=== PATIENT | female | born 1985 | race Caucasian/White ===

== ENCOUNTER 2024-04-30 05:44 | Emergency (ER) | payer BC ==
[~2024-04-30] VITALS: Ht 154.9 cm; Wt 56.7 kg
[2024-04-30 06:29] LABS: BASOPHILS # (AUTO) 0.1 K/uL (0.0-0.2); EOSINOPHILS # (AUTO) 0.2 K/uL (0.0-0.7); MONOCYTES # (AUTO) 0.5 K/uL (0.1-1.30)
[2024-04-30 06:41] LABS: CALCIUM, SERUM 9.1 mg/dL (8.5-10.1); CREATININE 0.7 mg/dL (0.6-1.3); POTASSIUM 4.1 mmol/L (3.5-5.1)
[2024-04-30] MEDS ORDERED: ONDA4TAB5 PO (06:49)
[2024-04-30 06:51] LABS: APPEARANCE,URINE CLEAR (CLEAR); BILIRUBIN,URINE NEGATIVE (NEGATIVE); BLOOD, URINE NEGATIVE Ery/uL (NEGATIVE); COLOR,URINE YELLOW (YELLOW); KETONES,URINE NEGATIVE (NEGATIVE); LEUKOCYTE ESTERASE ,URINE NEGATIVE (NEGATIVE); NITRITE, URINE NEGATIVE (NEGATIVE); PREGNANCY TEST URINE QUAL NEGATIVE (NEGATIVE); PROTEIN,URINE NEGATIVE (NEGATIVE); UGLUCOSE NEGATIVE (NEGATIVE); UROBILINOGEN,URINE 0.2 EU/dL (0.2)
[2024-04-30] MEDS: ONDANSETRON 4 MG TAB.RAPDIS SL ONE (06:51)
[2024-04-30] MEDS ORDERED: ONDANSETRON 4 MG TAB.RAPDIS ONE (06:51)
[2024-04-30 06:55] LABS: ALBUMIN 3.6 g/dL (3.4-5.0); BILIRUBIN,DIRECT 0.1 mg/dL (0.0-0.2); BILIRUBIN,TOTAL 0.2 mg/dL (0.2-1.0)
[2024-04-30 06:58] LABS: BASOPHILS % (AUTO) 1.2 % (0.0-2.0); EOSINOPHILS % (AUTO) 3.9 % (0.0-6.0); HEMATOCRIT 39 % (33-45); HEMOGLOBIN 13.2 g/dL (11.5-14.8); LYMPHOCYTES # (AUTO) 1.2 K/uL (0.8-4.8); LYMPHOCYTES % (AUTO) 23.2 % (20.0-44.0); MEAN CORPUSCULAR HEMOGLOBIN 31 PG (26.0-33.0); MEAN CORPUSCULAR HGB CONC 34 g/dl (31.0-36.0); MEAN CORPUSCULAR VOLUME 91 fL (82-100); NEUTROPHILS # (AUTO) 3.3 K/uL (1.8-8.9); NEUTROPHILS % (AUTO) 62.7 % (43.0-81.0); PLATELET COUNT (AUTO) 193 K/uL (150-450); RED CELL DISTRIBUTION WIDTH 12.8 % (11.5-15.0); WHITE BLOOD COUNT (AUTO) 5.2 K/uL (4.3-11.0)
[2024-04-30] MEDS ORDERED: HYOS-15 PO (07:43)
[2024-04-30 08:07] VITALS: BP 111/74; TEMP 98.2; O2SAT 97
== END 2024-04-30 08:09 | disposition home or self-care (01) ==
LOC: ER 05:59
DX: R10.11 Right upper quadrant pain (principal)
CPT/HCPCS: 99284; 76705; 71045; 85025; 80048; 83690; 80076; 84703; 81003; 36415; Q0162

== ENCOUNTER 2024-07-09 09:34 | Emergency (ER) | payer BC ==
[~2024-07-09] VITALS: Ht 157.5 cm; Wt 56.7 kg
[~2024-07-09 09:34] MED LIST: HYOS-15 PO; ONDA4TAB5 PO
[2024-07-09] MEDS ORDERED: IOHEXOL-300 100 ML VIAL IV ONE (09:52)
[2024-07-09] MEDS ORDERED: KETOROLAC TROMETHAMINE 15 MG/ML VIAL ONE (10:31)
[2024-07-09] MEDS ORDERED: CT SWABBABLE VALVE TRANS SET 1 EA INFUS.SET MC ONE (10:45)
[2024-07-09] MEDS ORDERED: IV NS 0.9% 250 ML IV ONE (10:46)
[2024-07-09] MEDS: IV NS 0.9% 500 ML BAG IV ONE (10:58)
[2024-07-09 11:01] LABS: BASOPHILS # (AUTO) 0.1 K/uL (0.0-0.2); BASOPHILS % (AUTO) 2.7 % (0.0-2.0); EOSINOPHILS # (AUTO) 0.1 K/uL (0.0-0.7); HEMATOCRIT 40 % (33-45); HEMOGLOBIN 13.5 g/dL (11.5-14.8); LYMPHOCYTES # (AUTO) 0.9 K/uL (0.8-4.8); LYMPHOCYTES % (AUTO) 23.6 % (20.0-44.0); MEAN CORPUSCULAR HEMOGLOBIN 31 PG (26.0-33.0); MEAN CORPUSCULAR HGB CONC 34 g/dl (31.0-36.0); MEAN CORPUSCULAR VOLUME 91 fL (82-100); MONOCYTES # (AUTO) 0.3 K/uL (0.1-1.30); MONOCYTES % (AUTO) 9.1 % (2.0-12.0); NEUTROPHILS # (AUTO) 2.2 K/uL (1.8-8.9); NEUTROPHILS % (AUTO) 60.6 % (43.0-81.0); PLATELET COUNT (AUTO) 216 K/uL (150-450); RED BLOOD CELL COUNT(AUTO) 4.38 MIL/uL (4.0-5.2); RED CELL DISTRIBUTION WIDTH 12.8 % (11.5-15.0); WHITE BLOOD COUNT (AUTO) 3.7 K/uL (4.3-11.0)
[2024-07-09 11:20] LABS: CALCIUM, SERUM 8.6 mg/dL (8.5-10.1); CREATININE 0.7 mg/dL (0.6-1.3); POTASSIUM 4.3 mmol/L (3.5-5.1)
[2024-07-09] MEDS ORDERED: NAPR-1164 PO (11:32)
[2024-07-09] MEDS: KETOROLAC TROMETHAMINE 15 MG/ML VIAL IV ONE (11:41)
[2024-07-09] MEDS ORDERED: ACETAMINOPHEN ES 500 MG TABLET ONE (11:54)
[2024-07-09 12:01] VITALS: BP 110/71; TEMP 97.9; O2SAT 96
== END 2024-07-09 12:01 | disposition home or self-care (01) ==
LOC: ER 09:51
DX: M54.2 Cervicalgia (principal); M79.10 Myalgia, unspecified site; R10.2 Pelvic and perineal pain; Z60.2 Problems related to living alone
CPT/HCPCS: 99285; 96374; 70491; 96361; 85025; 80048; 36415; 84702; J1885; J7050; Q9967

== ENCOUNTER 2025-01-28 07:25 | Emergency (ER) | payer BC ==
[~2025-01-28] VITALS: Ht 157.5 cm; Wt 64.9 kg
[~2025-01-28 07:25] MED LIST changes: +NAPR-1164 PO
[2025-01-28] MEDS ORDERED: IBUP-1955 PO (08:31)
[2025-01-28 09:24] VITALS: BP 118/72; TEMP 97.9; O2SAT 99
== END 2025-01-28 09:24 | disposition home or self-care (01) ==
LOC: ER 07:30
DX: S83.91XA Sprain of unspecified site of right knee, initial encounter (principal); Z88.1 Allergy status to other antibiotic agents; Z60.2 Problems related to living alone; Z79.899 Other long term (current) drug therapy; W01.0XXA Fall on same level from slipping, tripping and stumbling without subsequent striking against object, initial encounter; Y93.89 Activity, other specified; Y92.89 Other specified places as the place of occurrence of the external cause; Y99.8 Other external cause status
CPT/HCPCS: 73564-TC